=== PATIENT | male | born 1975 | race Caucasian/White ===

== ENCOUNTER 2024-08-09 15:20 | Outpatient (CLI) | payer MEDICARE, SELFPAY ==
[2024-08-09 16:48] LABS: C-Reactive Protein 0.4 mg/L (0-4)
[2024-08-11 14:11] LABS: QuantiFERON-TB Gold Plus Negative (Negative)
[2024-08-13 12:23] LABS: Aspergillus flavus Negative (Neg:<1:1); Aspergillus fumigatus Negative (Neg:<1:1); Aspergillus niger Negative (Neg:<1:1); Blastomyces Antibody Negative (Neg:<1:1); Histoplasma Antibody Quant Negative (Neg:<1:1)
== END 2024-08-09 23:59 | disposition home or self-care (01) ==
LOC: LAB 15:21
PROVIDERS: PCP Family Medicine; Visit Provider Internal Medicine Pulmonary Disease
DX: J84.10 Pulmonary fibrosis, unspecified (principal); R06.09 Other forms of dyspnea; J98.4 Other disorders of lung; R91.1 Solitary pulmonary nodule
CPT/HCPCS: 36415; 86140; 86480; 86606; 86612; 86698

== ENCOUNTER 2024-08-24 15:36 | Outpatient (CLI) | payer MEDICARE, SELFPAY ==
[2024-08-24 19:00] LABS: Hepatitis C Genotype ND
[2024-08-24 19:10] LABS: Basophils # 0.1 K/mm3 (0-0.2); Basophils % 1.2 % (0.1-2.0); Eosinophils # 0.1 Kmm3 (0.0-0.4); Eosinophils % 1.2 % (0.1-12.0); Hematocrit 47.6 % (42.0-52.0); Immature Granulocytes # 0.01 10^3uL; Immature Granulocytes % 0.2 %; Lymphocytes # 1.4 K/mm3 (0.7-4.5); Lymphocytes % 23.2 % (10-50); Mean Corpuscular HGB Conc 33.6 g/dL (31.8-35.4); Mean Corpuscular Hemoglobin 29.9 pg (27.0-31.2); Mean Corpuscular Volume 88.8 fl (80-94); Mean Platelet Volume 9.3 fl (7.4-10.4); Monocytes # 0.5 K/mm3 (0.1-1.0); Monocytes % 7.9 % (1.7-9.3); Neutrophils % 66.3 % (37.0-80.0); Nucleated Red Blood Cells # 0 10^3/uL; Nucleated Red Blood Cells % 0 %; Platelet Count 311 K/mm3 (142-424); Red Blood Count 5.36 M/mm3 (4.60-6.20); Red Cell Distribution Width 12.3 % (11.5-17.5); Red Cell Distribution Width-SD 39.8 fL
[2024-08-24 19:45] LABS: Alanine Aminotransferase 12 U/L (12-78); Albumin Level 4.3 g/dl (3.5-5.0); Albumin/Globulin Ratio 1.7 (1.1-1.8); Alkaline Phosphatase 73 U/L (38-126); Anion Gap 9.7 mEq/L (5-15); Aspartate Amino Transferase 21 U/L (17-59); Bilirubin,Total 0.8 mg/dl (0.2-1.3); Blood Urea Nitrogen 13 mg/dl (9-20); Calcium 9.3 mg/dl (8.4-10.2); Carbon Dioxide 28 mmol/L (22.0-30.0); Chloride 100 mmol/L (98-107); Chol/HDL Ratio 4.3 (1-3.5); Cholesterol 171 mg/dl (140-200); Estimated Glomerular Filt Rate 120 ml/min (>60); GFR (African American) 146 ML/MIN (>60); Globulin 2.5 g/dL (1.3-3.2); Glucose 83 mg/dl (74-100); HDL Cholesterol 40 mg/dl (40-60); Potassium 4.7 mmoL/L (3.5-5.1); Sodium 133 mmol/L (136-145); Total Protein,Serum 6.8 g/dl (6.3-8.2); Triglycerides 131 mg/dl (30-150); VLDL Cholesterol 26 mg/dL (0-40)
[2024-08-24 19:58] LABS: Direct LDL Cholesterol 124.74 mg/dL (100-129)
[2024-08-24 20:21] LABS: Thyroid Stimulating Hormone 2.41 uIU/mL (0.465-4.68)
== END 2024-08-24 23:59 | disposition home or self-care (01) ==
LOC: LAB.DROPOF 08-25 13:42
PROVIDERS: PCP Family Medicine; Visit Provider Family Medicine
DX: R63.4 Abnormal weight loss (principal)
CPT/HCPCS: 80053; 80061; 84443; 85025; 87522

== ENCOUNTER 2024-09-13 13:01 | Outpatient (CLI) | payer MEDICARE, SELFPAY ==
--- NOTE | 2024-09-13 13:02 | XR_ITS ---
FINAL REPORT TECHNIQUE: Right shoulder 3 views CLINICAL HISTORY: right shoulder pain COMPARISON: None FINDINGS: RIGHT SHOULDER: 3 images of the right shoulder were obtained. There is no evidence of fracture or dislocation. The joint spaces are intact. There is no soft tissue abnormality identified. IMPRESSION: No acute bony abnormality. Reviewed, Interpreted and Dictated by Casey Meade MD Transcribed by Haylee Keyes Authenticated and [facility]
--- OUTSIDE RECORDS SUMMARY | 2024-09-13 13:10 | XMS_ITS ---
Author Organization Unknown TREATMENT PLAN Planned Care Start Date Provider Encounter for Check-up [id number] [facility]
--- OUTSIDE RECORDS SUMMARY | 2024-09-13 13:11 | XMS_ITS | Data Portability ---
Author Organization [facility] [place] & JEVON Bryant ADMIN Address [address] [place] [id number] Assessment No assessment recorded. Plan of Treatment Reminders Order Date Submit Date Provider Last Modified By Organization Details Last Modified Time Details Appointments None recorded. Lab None recorded. Referral None recorded. Procedures None recorded. Surgeries None recorded. Imaging None recorded. Medication Orders nicotine 21 mg/24 hr daily transdermal patch 2023 024 [facility], [address], [place], [id number], 13:01:46 Patient TargetsNo targets recorded. Patient InstructionsNo instructions recorded. Reason for Referral None Reported. Results Created Date Observation Date Name Description Value Unit Range Abnormal Flag Note LastModifiedBy Organization Detail LastModifiedTime 11/27/19 24 11/27/2023 CULTU RE ANAER OBIC results B 11-29 1630 ANAER OBE PRESE NT--- PLEAS E CONTA CT [facility] ([phone]) WITHI N 48 HOURS IF FURTH ER IDENT IFICA TION IS REQUI RED. Not Available [facility] (Pre-Op Clinic) [address] [place] [address] [place], [address], 11/30/2023 16:31:42 11/27/19 24 11/27/2023 CULTU RE ANAER OBIC note Unles s other henao noted testi ng [facility] [address] [place] [address] David ahmilton MD Not Available [facility] (Pre-Op Clinic) [address] [place] [address] [place], [address], 11/30/2023 16:31:42 11/27/19 24 11/27/2023 CULTU RE WOUND results [facility] 11-27 1129 No Growt h at 1 Day [facility] 11-29 612 Molt te:1 Growt h Gram Negat shane Rods from Thio broth [facility] 11-29 730 Gram Negat shane Rods isola lisa from thio broth only Not Available [facility] (Pre-Op Clinic) [address] [place] [address] [place], [address], 11/30/2023 07:36:18 11/27/19 24 11/27/2023 CULTU RE WOUND note Unles s other henao noted testi ng perfo [facility]med at: [facility] [address] [place] [address] David hamilton MD Not Available [facility] (Pre-Op Clinic) [address] [place] [address] [place], [address], 11/30/2023 07:36:18 11/27/19 24 11/27/2023 GRAM STAIN source WOUND Not Available [facility] (Pre-Op [facility]) [address] [place] [address] [place], [address], 11/27/2023 16:43:45 11/27/19 24 11/27/2023 GRAM STAIN quantitation #1 FEW Not Available [facility] ([facility]Op [facility]) [address] [place] [address] [place], [address], 11/27/2023 16:43:45 11/27/19 24 11/27/2023 GRAM STAIN organism #1 GRAM POS COCCI Not Available [facility] ([facility]Op [facility]) [address] [place] [address] [place], [address], 11/27/2023 16:43:45 11/27/19 24 11/27/2023 GRAM STAIN morphology 1 PAIRS Not Available [facility] (Pre-Op [facility]) [address] [place] [address] [place], [address], 11/27/2023 16:43:45 11/27/19 24 11/27/2023 GRAM STAIN WBC FEW no WBC's seen Not Available [facility] (Pre[facility]Op [facility]) [address] [place] [address] [place], [address], 11/27/2023 16:43:45 11/27/19 24 11/27/2023 GRAM STAIN yeast NONE SEEN none seen Not Available [facility] ([facility]Op [facility]) [address] [place] [address] [place], [address], 11/27/2023 16:43:45 11/27/19 24 11/27/2023 GRAM STAIN gram positive QC slide PASS PASS Not Available [facility] (Pre[facility]Op [facility]) [address] [place] [address] [place], [address], 11/27/2023 16:43:45 11/27/19 24 11/27/2023 GRAM STAIN gram negative QC slide PASS PASS Not Available [facility] (Pre[facility]Op [facility]) [address] [place] [address] [place], [address], 11/27/2023 16:43:45 11/27/19 24 11/27/2023 GRAM STAIN note Unles s other henao noted testi ng perfo rmed at: [facility] [address] [place] [address] David hamilton MD Not Available [facility] ([facility]Op [facility]) [address] [place] [address] [place], [address], 11/27/2023 16:43:45 11/27/19 24 11/27/2023 CULTU RE WOUND culwnd ===== ===== ===== ===== ===== ===== ===== ===== ===== ===== ===== ===== ===== ===== ===== ===== ===== ===== ===== ===== ===== ===== ===== ===== CULTU RE NO.: [id number] Exam Statu s: Final Exam Type: CULTU RE WOUND ===== ===== ===== ===== ===== ===== ===== ===== ===== ===== ===== ===== ===== ===== ===== ===== ===== ===== ===== ===== ===== ===== ===== ===== Cultu re Repor t: Organ ism #01 Esche gemma a coli (ESCC OL) Organ ism #02 Enter ococc us faeci um (ENTC BRAYDON) Antib iotic s ESCCO L ENTCF AI Achie vable Achie vable () () Dosag e Serum Level Urine Level mcg/m l mcg/m l Amika anaya <=8 S 007S Ampic illin <=4 S 1 S Ampic illin /Sulb actam 2/1 S 007S Aztre onam <=2 S 007S Cefep josesito <=1 S 007S Cefta zidim e <=2 S 007S Ceftr iaxon e <=1 S 007S Cipro floxa anaya <=0.2 5 S 007S CARBR S 007S Dapto mycin 4 S Ertap enem <=0.2 5 S 007S ESBL NEG N 007S Genta micin <=2 S 007S Genta micin -Syn <=500 S Levof loxac in <=0.5 S 007S Linez olid 2 S Merop enem <=0.5 S 007S Penic illin G 2 S Piper acill in/Ta zobac <=2/4 S 007S Strep tomyc in-Sy n <=100 0 S Tetra cycli ne <=2 S 007S Tobra mycin <=2 S 007S Trime thopr im/Banks lfame <=0.5 / S 007S Vanco mycin <=0.5 S [facility] 11-27 1129 No Growt h at 1 Day [facility] 11-29 612 Molt te:1 Growt h Gram Negat shane Rods from Thio broth [facility] 11-29 730 Gram Negat shane Rods isola lisa from thio broth only [facility] 11-29 851 Molt te: 2 Growt h Enter ococc us from Thio broth only Not Available [facility] ([facility]) [address] [place] [address] [place], [address], 12/01/2023 09:12:29 11/27/19 24 11/27/2023 CULTU RE WOUND note Unles s other henao noted testi ng [facility] [address] [place] [address] David hamilton MD Not Available [facility] ([facility]) [address] [place] [address] [place], [address], 12/01/2023 09:12:29 Result Notes None recorded. Procedures Surgical History Date Name Laterality Status Provider Name and Address Organization Details Recorded Time incision and drainage of perirectal abscess completed Michelle Zavaleta [facility] [place] 11/30/2023 08:28:18 Imaging Results None recorded. Procedure Notes None recorded. Medical Equipment None Reported. Allergies Allergen ID Allergen Name Allergen Category Reaction Reaction Severity Criticality Documentation Date Start Date Code Code System Note Provider Name and Address Organization Details Recorded Time 77425 prednison e medicatio n Not available Not available Not available 07/01/2022 8640 RxNorm Radha Floresdeidre torre [facility] [place] 10:07:33 Medications Name Sig Start Date Stop Date Status Note LastModified by Organization Details LastModified Time amoxicillin 500 mg capsule TAKE 1 CAPSULE BY MOUTH EVERY 8 HOURS FOR 10 DAYS 12/01 completed Not Available Not Available Not Available sulfamethox azole 800 mg-trimetho prim 160 mg tablet TAKE 1 TABLET BY MOUTH EVERY 12 HOURS FOR 10 DAYS 12/01 completed Not Available Not Available Not Available oxycodone-a cetaminophe n 5 mg-325 mg tablet TAKE 1 TABLET BY MOUTH EVERY FOUR HOURS NEEDED FOR MODERATE PAIN: 4-6 PAIN SCALE active Not Available Not Available No t Available nicotine 21 mg/24 hr daily transdermal patch APPLY 1 PATCH ONCE DAILY DIRECTED. REMOVE OLD PATCH BEFORE APPLYING NEW PATCH. ROTATE APPLICATI ON SITES. active Not Available Not Available No t Available amoxicillin 875 mg-potassiu m clavulanate 125 mg tablet TAKE 1 TABLET BY MOUTH EVERY 12 HOURS active Not Available Not Available No t Available Vitals Date Recorded Body height Body mass index (BMI) Body weight Heart rate Oxygen saturation Oxygen saturation in Arterial blood by Pulse oximetry Body temperature Systolic blood pressure Diastolic blood pressure Provider Name and Address Organization Details Last Updated DateTime 4 165.1 cm 16.2 kg/m2 48593.2 6 g 75 /min 97 % 97 % 98.6 [degF] 91 mm[Hg] 62 mm[Hg] Michelle White [facility] [place] 4 11:55:43 Social History Question Answer Notes LastModified by [employer] Details LastModified Time Tobacco Smoking Status Current Every Day Smoker Radha Charles [facility], [facility] [place] 07/01/2022 10:06:28 How Much Tobacco Do You Smoke? 1 PPD [email or web address] Information not available 07/01/2022 Sex: Unknown Functional Status Question Answer Note LastModified by [employer] Details LastModified Time Do you use any illicit or recreational drugs? No [email or web address] Information not available 12/02/2023 What is your level of alcohol consumption? None [email or web address] Information not available 12/02/2023 Mental Status None recorded. Family History Relationship Description Onset Age of this Age Resolved Age Notes LastModified by Organization Details LastModified Time Mother Hypertensive disorder [email or web address] Not available 07/01 10:05:31 Father Coronary arterioscler osis [email or web address] Not available 07/01 10:05:38 Father Diabetes mellitus [email or web address] Not available 07/01 10:05:46 Father Malignant neoplasm of lung [email or web address] Not available 07/01 10:05:57 Father Malignant neoplasm of urinary bladder [email or web address] Not available 07/01 10:06:06 Medical History No medical history recorded. Past Encounters Encounter ID Performer Location Encounter Start Date Encounter Closed Date Diagnosis/Indication Diagnosis SNOMED-CT Code Diagnosis ICD10 Code Diagnosis Note [id number] Radha Brooke DO [facility] - [address] [place] [address] Drive, [address] [place] [id number] 12/02/2023 10:45:47 12/03/2023 08:38:11 Tobacco user 960877423 Z72.0 he wants a Nicoderm patch and I will send those to his pharmacy. He needs to follow up with his PCP for further refills. 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 He should continue Sitz baths. He is to let me know if he has any further problems. Internal hemorrhoids 900 08804 K64.8 we did discuss that he needs a colonoscop y given his age. I am happy to perform that whenever it is convenient for him. We did discuss that depending on what I find, I can recommend hemorrhoid ectomy also. Health Concerns Section Related Observation LastModified by Organization Detai ls LastModified Time None Recorded Concern Status LastModified by Organization Details LastModified Time None Recorded Advance Directives Directive None Recorded Payers Insurance Date Sequence Insurance Name Policy Number Policy Kam Covered Member ID Kam Member ID Guarantor Name 12/14/2023 1 [place]ARE[place] Praful Ortega Ambrose [id number] Praful Boggs 12/14/2023 2 [employer] [facility] (MEDICAID HMO) Praful Boggs [id number] Praful Boggs 12/14/2023 1 [employer] (MEDICARE REPLACEMENT /ADVANTAGE - PPO) [id number] Praful Boggs [id number] Praful Boggs Notes Date Note Type Note Provider Name and Address Organization Details Recorded Time 12/02/2023 text/html Praful is here wit h his family following up after incision and drainage of perirectal abscess. He states he is doing well. His packing fell out in the bath tub several days ago. He has been performing warm Sitz baths daily. He denies any drainage from the area at this time. He is having bowel movements. He denies fever or chills. He has completed his antibiotics. He would like me to send nicotine patches into his pharmacy as he is trying to quit smoking. Radha Brooke, [address], [address], [place], [address], [facility] [place] [facility] [place] 12/02/2023 13:56:53
--- NOTE | 2024-09-13 14:30 | CT_ITS ---
FINAL REPORT TECHNIQUE: Axial images were obtained through the chest without contrast. Coronal and sagittal images were obtained and reviewed. This study was performed with techniques to keep radiation doses as low as reasonably achievable, (ALARA). Individualized dose reduction techniques using automated exposure control or adjustment of mA and/or kV according to the patient's size were employed. CLINICAL HISTORY: ELISABETH cavitary PNM from 2018 COMPARISON: None FINDINGS: There is no mediastinal mass or adenopathy. There is a multitude of cutaneous masses, particularly along the anterior thorax measuring up to 1.6 cm. The heart size is normal. There is no pericardial or pleural effusion. Limited images of the upper abdomen are unremarkable. Advanced changes of centrilobular emphysema are noted. There is biapical pleural and parenchymal scarring. Calcified granulomas are seen in the anterior left upper lobe. IMPRESSION: Advanced changes of centrilobular emphysema. Biapical pleural and parenchymal scarring. Multiple cutaneous masses. Correlate with any history of underlying neurofibromatosis. Reviewed, Interpreted and Dictated by Casey Meade MD Transcribed by Danika Farnsworth Authenticated and [facility]
== END 2024-09-13 23:59 | disposition home or self-care (01) ==
LOC: RAD 13:02
PROVIDERS: PCP Family Medicine; Referring Provider Physician Assistant Surgical; Visit Provider Internal Medicine Pulmonary Disease
DX: J43.2 Centrilobular emphysema (principal); J98.4 Other disorders of lung; R91.8 Other nonspecific abnormal finding of lung field; M25.511 Pain in right shoulder; G89.29 Other chronic pain
CPT/HCPCS: 71250; 73030